=== PATIENT | male | born 1945 | race Caucasian/White ===

== ENCOUNTER → 2017-05-20 | Day surgery (SDC) | payer MEDICARE ==
[~2017-05-20] MED LIST: AMBIEN10 MG PO; BELLADONNA/OPIUM 60 MG SUPP PR ONE; CEFTRIAXONE SOD 1 GM VIAL ONE; DESFLURANE 240 ML BTL INH ONE; DEXAMETHASONE SOD PHOS INJ 4 MG/ML VIAL ONE; FENTANYL CITRATE/PF 100MCG/2 ML INJ ONE; GENTAMICIN 80MG/NS 100 ML 200 ML IV ONE; IOPAMIDOL 610MG/1ML 300 MG/ML VIAL IV ONE; LIDOCAINE HCL 2% LOCAL INJ 5 ML SDV VIAL INJ ONE; LISINOPRIL10 MG PO; MIDAZOLAM HCL 2 MG/2 ML VIAL ONE; ONDANSETRON HCL INJ 2 MG/ML VIAL ONE; PRILOSEC OTC20 MG PO; PROPOFOL IV EMULSION 10 MG/ML 20 ML VIAL ONE
--- NOTE | 2017-05-20 05:36 | Diagnostic Imaging Report ---
EXAMINATION: CHEST SINGLE (PORTABLE) INDICATION: Presurgical assessment. COMPARISON: None FINDINGS: TUBES and LINES: None. LUNGS: Lungs are well inflated. Lungs are clear. There is no evidence of pneumonia or pulmonary edema. PLEURA: No pleural effusion or pneumothorax. HEART AND MEDIASTINUM: The cardiomediastinal silhouette is unremarkable. BONES AND SOFT TISSUES: No acute osseous lesion. Soft tissues are unremarkable. UPPER ABDOMEN: No free air under the diaphragm. IMPRESSION: No acute thoracic abnormality. Signed by: Dr. Curtis Marte M.D. on 05/20/2017 5:33 AM
[2017-05-20 05:56] LABS: BASOPHILS % 0.4 % (0.0-1.0); EOSINOPHILS # (AUTO) 0.3 (0.0-0.4); EOSINOPHILS % 5.6 % (0.0-6.0); HEMATOCRIT 36.7 % (38.2-49.6); HEMOGLOBIN 11.9 g/dL (14.0-18.0); LYMPHOCYTES # (AUTO) 1.1 (1.0-3.2); LYMPHOCYTES % 23.5 % (18.0-39.1); MEAN CORPUSCULAR HEMOGLOBIN 28.8 pg (28-32); MEAN CORPUSCULAR HGB CONC 32.4 g/dL (31-35); MEAN CORPUSCULAR VOLUME 88.9 fL (81-99); MONOCYTES # (AUTO) 0.5 (0.2-0.8); MONOCYTES % 9.3 % (4.4-11.3); NEUTROPHILS % 60.8 % (38.7-80.0); PLATELET COUNT 260 x10e3/uL (140-360); RED BLOOD COUNT 4.13 x10e6/uL (4.3-5.7); RED CELL DISTRIBUTION WIDTH 13.3 % (11.7-14.4)
--- OUTSIDE RECORDS SUMMARY | 2017-05-20 05:57 | XMS REPORT | Clinical Summary ---
Author Author [facility] Address Unknown Phone Unavailable Care Team Providers Care Power Distributor Name Role Phone Ashley Bowens PCP Allergies No Known Allergies Current Medications Prescription Sig. Disp. Refills Start End Date Status Date allopurinol (ZYLOPRIM) TK 1 T PO QD UTD 0 12/20/19 Active 100 MG tablet 17 buprenorphine (BUTRANS) 5 NEISHA 1 PA EXT TO THE SKIN 0 01/16/20 Active mcg/hour patch weekly Q 7 DAYS 17 cyclobenzaprine TK 1 T PO D PRF MSP 0 02/12/20 Active (FLEXERIL) 10 mg tablet 17 hydroCHLOROthiazide TK 1 T PO QD IN THE 3 02/23/20 Active (HYDRODIURIL) 12.5 MG MORNING 17 tablet HYDROcodone-acetaminophen TK 1 T PO BID PRF PAIN 0 02/12/20 Active (NORCO) 5-325 mg per 17 tablet lisinopril TK 1 T PO QD 3 02/23/20 Active (PRINIVIL,ZESTRIL) 20 mg 17 tablet zolpidem (AMBIEN) 10 mg TK 1 T PO QD HS 2 02/25/20 Active tablet 17 naproxen (EC NAPROSYN) Take 500 mg by mouth 2 Active 500 MG EC tablet (two) times a day with meals. folic acid (FOLVITE) 1 MG Take 1 tablet (1 mg 90 tablet 1 04/21/19 07/21/19 tablet total) by mouth daily for 17 17 90 days. Active Problems No known active problems Encounters Date Type Specialty Care Team Description 05/11/2017 Hospital Radiology Oneida Perez MD Spinal stenosis of lumbar Encounter region with neurogenic claudication 03/02/2017 Office Visit Neurology Oneida Perez MD Idiopathic peripheral neuropathy (Primary Dx);Spinal stenosis of lumbar region with neurogenic claudication;Other specified disorders of carbohydrate metabolism (CODE) 03/02/2017 Procedure Pass Radiology 10/09/2016 Refill Rheumatology Abdelrahman Mallory MD after 05/19/2016 Social History Tobacco Use Types Packs/Day Years Used Date Former Smoker Cigarettes Quit: 03/02/1998 Smokeless Tobacco: Never Used Alcohol Use Drinks/Week oz/Week Comments No Sex Assigned at Date Recorded Not on file Last Filed Vital Signs Vital Sign Reading Time Taken Blood Pressure 135/78 03/02/2017 1:08 PM [facility] Pulse 90 03/02/2017 1:08 PM [facility] Temperature - - Respiratory Rate - - Oxygen Saturation - - Inhaled Oxygen - - Concentration Weight 80.7 kg (178 lb) 05/11/2017 7:00 AM [facility] Height 182.9 cm (6') 03/02/2017 1:08 PM [facility] Body Mass Index 24.14 05/11/2017 7:00 AM [facility] Plan of Treatment Date Type Specialty Care Team Description 05/27/2017 Procedure visit Neurology Oneida Perez MD [address] [address] Health Maintenance Due Date Last Done Comments COLONOSCOPY 11/28/1995 ZOSTER VACCINE 2005 PNEUMOCOCCAL 2010 POLYSACCHARIDE VACCINE AGE 65 AND OVER PNEUMOCOCCAL-13 2010 INFLUENZA VACCINE 11/11/2016 Results * SSA/SSB antibody (05/12/2017 9:35 AM) Component Value Ref Range Sjogren's SS-A antibody <0.2 0.0 - 0.9 AI Sjogren's SS-B antibody <0.2 0.0 - 0.9 AI Specimen Performing Laboratory Blood [facility] Narrative Performed at:[address] [place], [place] [id number] Supervisor [employer]: Srinivasan Rico MD, Phone:[phone] * Immunofixation, serum (05/12/2017 9:35 AM) Component Value Ref Range Immunofixation, serum CommentComment: An apparent normal immunofixation pattern. IgG 949 700 - 1600 mg/dL IgA 219 61 - 437 mg/dL IgM 198 (H) 15 - 143 mg/dL Specimen Performing Laboratory Blood [facility] Narrative Performed at:[address] [place], [place] [id number] Supervisor [employer]: FARHAN Coffman MD, Phone:[phone] Performed at:02 - [id number] Supervisor [employer]: Srinivasan Rico MD, Phone:[phone] * MRI Lumbar Spine W Wo Contrast (05/11/2017 8:41 AM) Specimen Performing Laboratory [facility] [address] [address] Narrative EXAMINATION:MRI LUMBAR SPINE W WO CONTRAST CLINICAL HISTORY:M48.062 Spinal stenosislumbar region with neurogenic claudication, lumbar and leg pain COMPARISON:None. FINDINGS: There is a spondylolisthesis of approximately 6 mm of L4 on L5 is diffuse grade 1. There is a minimal retrolisthesis of approximately 2 to 3 mm of L2 on L3. Degenerative disc disease throughout the lumbar and lower thoracic region is present. The disc spaces at the L4-5 and L5-S1 levels are obliterated. The conus medullaris terminates at approximately L1. A right renal cyst is noted which is incompletely visualized. L1-2: The neural foramina are patent bilaterally. The disc margin is smooth. The central canal is preserved lateral recesses are unremarkable. Facets are moderately hypertrophic. L2-3: The foramina are patent but narrowed bilaterally. There is a mild diffuse disc protrusion/osteophytic ridge. The central canal is maintained. The lateral recesses are preserved. Facets are grossly hypertrophic. Some compression of the thecal sac laterally is present although no maulik stenosis is noted. L3-4: The foramina are mildly narrowed bilaterally by diffuse disc protrusion. The central canal is preserved lateral recesses are borderline related to gross dorsal facet and ligamentous hypertrophy. L4-5: The neural foramina are narrowed bilaterally. There appear to be postop changes dorsally at this level from a previous laminotomy to the right. There is a mild central canal stenosis. The lateral recesses are narrowed bilaterally greater to the right. There is gross facet hypertrophy dorsally. This compresses the thecal sac laterally. There is also pronounced dorsal facet hypertrophy greater to the left compressing the thecal sac dorsolaterally to the left. L5-S1: The foramina are narrowed bilaterally. There is a diffuse disc protrusion. The central canal and lateral recesses are preserved. Facets are grossly hypertrophic. Probable laminectomy defect at the L5-S1 level. IMPRESSION: 1. Diffuse disc protrusion at the L2-3 level with borderline foraminal narrowing on both sides and gross dorsal facet and ligamentous hypertrophy. 2. Foraminal narrowing bilaterally at the L3-4 level related to disc protrusion/ osteophytic ridge and facet hypertrophy. 3. Postop changes at the L4-5 level with hypertrophic changes involving the facet joints greater to the left and a central canal and severe bilateral lateral recess stenosis at this level related present slightly to the hypertrophic changes and a spondylolisthesis of L4 on L5. 4. Borderline central canal and lateral recess narrowing at the L5-S1 level related to gross dorsal facet and ligamentous hypertrophy. IMPRESSION: [id number] Procedure Note Hm Interface, Radiology Results Incoming - 05/11/2017 9:21 AM [facility] EXAMINATION: MRI LUMBAR SPINE W WO CONTRAST CLINICAL HISTORY: M48.062 Spinal stenosis lumbar region with neurogenic claudication, lumbar and leg pain COMPARISON: None. FINDINGS: There is a spondylolisthesis of approximately 6 mm of L4 on L5 is diffuse grade 1. There is a minimal retrolisthesis of approximately 2 to 3 mm of L2 on L3. Degenerative disc disease throughout the lumbar and lower thoracic region is present. The disc spaces at the L4-5 and L5-S1 levels are obliterated. The conus medullaris terminates at approximately L1. A right renal cyst is noted which is incompletely visualized. L1-2: The neural foramina are patent bilaterally. The disc margin is smooth. The central canal is preserved lateral recesses are unremarkable. Facets are moderately hypertrophic. L2-3: The foramina are patent but narrowed bilaterally. There is a mild diffuse disc protrusion/osteophytic ridge. The central canal is maintained. The lateral recesses are preserved. Facets are grossly hypertrophic. Some compression of the thecal sac laterally is present although no maulik stenosis is noted. L3-4: The foramina are mildly narrowed bilaterally by diffuse disc protrusion. The central canal is preserved lateral recesses are borderline related to gross dorsal facet and ligamentous hypertrophy. L4-5: The neural foramina are narrowed bilaterally. There appear to be postop changes dorsally at this level from a previous laminotomy to the right. There is a mild central canal stenosis. The lateral recesses are narrowed bilaterally greater to the right. There is gross facet hypertrophy dorsally. This compresses the thecal sac laterally. There is also pronounced dorsal facet hypertrophy greater to the left compressing the thecal sac dorsolaterally to the left. L5-S1: The foramina are narrowed bilaterally. There is a diffuse disc protrusion. The central canal and lateral recesses are preserved. Facets are grossly hypertrophic. Probable laminectomy defect at the L5-S1 level. IMPRESSION: 1. Diffuse disc protrusion at the L2-3 level with borderline foraminal narrowing on both sides and gross dorsal facet and ligamentous hypertrophy. 2. Foraminal narrowing bilaterally at the L3-4 level related to disc protrusion /osteophytic ridge and facet hypertrophy. 3. Postop changes at the L4-5 level with hypertrophic changes involving the facet joints greater to the left and a central canal and severe bilateral lateral recess stenosis at this level related present slightly to the hypertrophic changes and a spondylolisthesis of L4 on L5. 4. Borderline central canal and lateral recess narrowing at the L5-S1 level related to gross dorsal facet and ligamentous hypertrophy. IMPRESSION: [id number] * POC creatinine (05/11/2017 7:43 AM) Component Value Ref Range POC creatinine 1.5 (H) 0.7 - 1.2 mg/dl Specimen Performing Laboratory Blood [facility] DEPARTMENT OF PATHOLOGY AND GENOMIC MEDICINE [address] [place] [address] after 05/19/2016 Insurance Payer Benefit Subscriber ID Type Phone Address Plan / Group [employer] MEDICARE [employer] [id number] [facility] [employer]
--- OUTSIDE RECORDS SUMMARY | 2017-05-20 05:57 | XMS REPORT ---
Author Author [facility] Address Unknown Phone Unavailable Care Team Providers Care Stock Receiver Name Role Phone MICKEY BATES Unavailable Unavailable Problems This patient has no known problems. Allergies, Adverse Reactions, Alerts This patient has no known allergies or adverse reactions. Medications This patient has no known medications. Results Test Description Test Time Test Comments Text Results Atomic Results Result Comments CHEST SINGLE (PORTABLE) [place] [address] Patient Name: EKATERINA BRO JR MR #: [id number] : 1945 Age/Sex: 71/M Req #: [id number] Adm Physician: Ordered by: WIL SALDIVAR MD Report #: [id number] Location: OR Room/Bed: Procedure: [id number] DX/CHEST SINGLE (PORTABLE) Exam Date: Exam Time: REPORT STATUS: Signed EXAMINATION: CHEST SINGLE ( PORTABLE) INDICATION: Presurgical assessment. COMPARISON: None FINDINGS: TUBES and LINES: None. LUNGS: Lungs are well inflated. Lungs are clear. There is no evidence of pneumonia or pulmonary edema. PLEURA: No pleural effusion or pneumothorax. HEART AND MEDIASTINUM: The cardiomediastinal silhouette is unremarkable. BONES AND SOFT TISSUES: No acute osseous lesion. Soft tissues are unremarkable. UPPER ABDOMEN: No free air under the diaphragm. IMPRESSION: No acute thoracic abnormality. Signed by: Dr. Curtis Marte M.D. on 05/20/2017 5:33 AM Dictated By: CURTIS GAMING MD 2 Transcribed By: FIDELIA on 05/20/17532 COPY TO: WIL SALDIVAR MD
--- NOTE | 2017-06-25 05:41 | Operative Report ---
DATE OF PROCEDURE: May 20, 2017 PREOPERATIVE DIAGNOSES: 1. History of urolithiasis. 2. Obstructive benign prostatic hypertrophy. POSTOPERATIVE DIAGNOSES: 1. History of urolithiasis. 2. Obstructive benign prostatic hypertrophy. OPERATIONS PERFORMED: 1. Cystourethroscopy with bilateral ureteral catheterization and retrograde ureteropyelography (separate procedure performed for the urolithiasis history). 2. Interpretation of retrograde ureteropyelography. 3. Cystourethroscopy with implantation of 4 UroLift implants (separate procedure performed for the obstructive benign prostatic hypertrophy). ANESTHESIA: General. COMPLICATIONS: None. CLINICAL SUMMARY: Calixto Bustamante Jr. is a 71-year-old man with the above preoperative diagnoses. He has failed Flomax, and has had side effects to Uroxatral. He has thus failed 2 medications. The patient previously passed a stone. The patient's maximum flow rate is only 10 mL and his AUA symptom score is above 12. Patient understands the risks of bleeding, infection, injury to adjacent structures, potential need for a transurethral resection of the prostate or similar procedure. He understood all these risks and elected to proceed. OPERATIVE PROCEDURE IN DETAIL: Informed consent was verified. Calixto Bustamante Jr. was properly identified, taken to the operating room and placed on the cystoscopy table in supine position. Anesthesia was uneventfully begun. The patient was then carefully and gently repositioned in dorsal lithotomy position with all pressure points well padded. His genitalia were prepared and draped in usual sterile fashion. The 22.5-Armenian cystoscope sheath with the visual obturator in place was atraumatically inserted in patient's urethra. It was guided down the unremarkable distal urethra through some wide caliber probably insignificant stricturing through the normal sphincteric region into the patient's prostate bed, which exhibited visually obstructing BPH. Panendoscopy of the urinary bladder revealed a small diverticulum that was near the right ureteral orifice. There were some trabeculations noted throughout the bladder. No suspicious mucosal lesions were identified. There were no stones and no tumors. A ureteral catheter was utilized to cannulate each ureter, and retrograde ureteropyelograms were performed. Interpretation of retrograde ureteropyelography: Contrast was instilled in retrograde fashion bilaterally. There were no tumors, no stones, and no diverticula. Unobstructed drainage was observed bilaterally fluoroscopically. We removed the cystoscope sheath and then reinserted under direct vision a 20-Armenian cystoscope sheath. We then deployed 4 UroLift implants. They were deployed anterolaterally, 1 on either side 1-1/2 cm distal to the bladder neck and at the level of the verumontanum for a total of 4 implants. This resulted in a continuous open anterior channel. The cystoscope was withdrawn. A belladonna and opium suppository was placed revealing a 40 gram prostate, smooth, nonfluctuant, and without any nodules. The patient was then uneventfully reversed from anesthesia and taken to the recovery room in stable condition. There were no complications to the procedure. He tolerated the procedure well. Plans will be to follow the patient up in the office, at which point in time uroflowmetry and bladder ultrasonography will be performed. Job#: [id number] cc:Hayes Gunter M.D.
== END | disposition home or self-care (01) ==
LOC: OR 05:55
PROVIDERS: ATTEND Urology
DX: N40.1 Benign prostatic hyperplasia with lower urinary tract symptoms (principal); N13.8 Other obstructive and reflux uropathy; R39.14 Feeling of incomplete bladder emptying; R35.1 Nocturia; N32.3 Diverticulum of bladder; N28.1 Cyst of kidney, acquired; R39.12 Poor urinary stream; N52.9 Male erectile dysfunction, unspecified; I10 Essential (primary) hypertension; M19.90 Unspecified osteoarthritis, unspecified site; K21.9 Gastro-esophageal reflux disease without esophagitis; Z87.442 Personal history of urinary calculi
CPT/HCPCS: 52005; C9740; 36415; 71045; 74420; 85025; 93005; J0696; J1100; J1580; J2001; J2250; J2405

== ENCOUNTER → 2017-09-08 | Outpatient (CLI) | payer MEDICARE ==
[~2017-09-08] MED LIST changes: -BELLADONNA/OPIUM 60 MG SUPP PR ONE; -CEFTRIAXONE SOD 1 GM VIAL ONE; -DESFLURANE 240 ML BTL INH ONE; -DEXAMETHASONE SOD PHOS INJ 4 MG/ML VIAL ONE; -FENTANYL CITRATE/PF 100MCG/2 ML INJ ONE; -GENTAMICIN 80MG/NS 100 ML 200 ML IV ONE; -IOPAMIDOL 610MG/1ML 300 MG/ML VIAL IV ONE; -LIDOCAINE HCL 2% LOCAL INJ 5 ML SDV VIAL INJ ONE; -MIDAZOLAM HCL 2 MG/2 ML VIAL ONE; -ONDANSETRON HCL INJ 2 MG/ML VIAL ONE; -PROPOFOL IV EMULSION 10 MG/ML 20 ML VIAL ONE
--- NOTE | 2017-09-08 17:49 | Diagnostic Imaging Report ---
PROCEDURE: CT ABDOMEN AND PELVIS WITHOUT CONTRAST TECHNIQUE: The abdomen and pelvis were scanned utilizing a multidetector helical scanner from the diaphragm to the lesser trochanter after the oral administration of water. No IV contrast was administered per protocol. Coronal and sagittal multiplanar reformations were obtained. COMPARISON: Patients [facility], DX, RETROGRADE PYELOGRAM, 05/20/2017, 6:53. INDICATIONS: renal stone follow up FINDINGS: ABSENCE OF INTRAVENOUS CONTRAST DECREASES SENSITIVITY FOR DETECTION OF FOCAL LESIONS AND VASCULAR PATHOLOGY. LOWER THORAX: 4 mm calcified granuloma in the anterior right lower lobe (series 3, image 6). Metallic clips adjacent to the GE junction. Lung bases are otherwise clear. HEPATOBILIARY: No focal hepatic lesions. No biliary ductal dilatation. Gallbladder is unremarkable. SPLEEN: No splenomegaly. PANCREAS: Focal convexity in the anterior aspect of the pancreatic head to the right of the gastroduodenal artery (series 3, image 48 and coronal image 40-42), between the pancreatic head and second portion of the duodenum. This area does not have the same attenuation as the rest of the pancreatic parenchyma. No ductal dilation ADRENALS: 1.1 x 1.0 cm hypodense nodule in the left adrenal gland (series 3, image 25) with a measured density of -10 HU, consistent with a benign lipid rich adrenal adenoma..A similar 1.2 x 0.9 cm lesion with measured density of 6 HU is noted in the right adrenal gland (series 3, image 28). KIDNEYS/URETERS: Right: 4 mm nonobstructing calculus in the mid to inferior aspect (series 3, image 63). No other renal or ureteral calculi. No hydronephrosis, hydroureter, or evidence of obstruction. 4.1 x 5.5 x 5.3 cm mostly exophytic fluid density simple cyst in the superior pole (series 3, image 36). 2.0 x 2.3 x 2.3 cm partly exophytic fluid density simple cyst in the interpolar region (series 3, image 59). Adjacent 0.8 x 0.7 cm mostly exophytic fluid density simple cyst (series 3, image 66). No other contour abnormalities. Left: No renal or ureteral calculi, hydronephrosis, or obstruction. 2.6 x 2.3 x 2.2 cm fluid density simple cyst in the interpolar region (series 3, image 40). No other contour abnormalities.. PELVIC ORGANS/BLADDER: Mild circumferential bladder wall thickening, which are partly due to under distention. Linear metallic densities in the prostate may represent brachytherapy seeds PERITONEUM / RETROPERITONEUM: No free air or fluid. LYMPH NODES: No lymphadenopathy. VESSELS: Atherosclerotic calcification of the abdominal aorta and proximal iliac vessels. GI TRACT: No bowel dilation or evidence of obstruction. Distal descending and sigmoid colon diverticulosis, without diverticulitis. Mild wall thickening in the sigmoid colon, which may be due to muscular hypertrophy. Postoperative changes in the distal stomach antrum/pylorus BONES AND SOFT TISSUES: No aggressive lytic lesion. Degenerative disc changes, predominantly at L4-L5, and L5-S1. Grade 1 anterolisthesis of L4 on L5 secondary to bilateral pars interarticularis defects. Grade 1 anterolisthesis of S1 on L5. Grade 1 anterolisthesis of L3 on L2. Facet hypertrophy. L3-L4, L4-L5, and L5-S1. Mild degenerative changes in the right sacroiliac joint. 0.9 cm focal sclerotic lesion in the proximal left femur has a nonaggressive appearance and likely represents a bone island (series 3, image 149). Soft tissues are grossly unremarkable. IMPRESSION: 1. 4 mm nonobstructing calculus in the mid to inferior right kidney. No other renal or any ureteral calculi, hydronephrosis, or obstruction. 2. Bilateral simple renal cysts, as described. 3. Indeterminate focal convexity between the second portion of the duodenum and the pancreatic head, which does not measure similar attenuation to pancreatic tissue. Difficult to assess due to lack of intravenous contrast. A duodenal diverticulum is a diagnostic possibility. A focal pancreatic mass is thought to be less likely given the lack of ductal dilation. Recommend CT abdomen with pancreas mass protocol for further evaluation. 4. Bilateral small benign, lipid rich adrenal adenomas. No further diagnostic or followup imaging is indicated. 5. Distal descending and sigmoid colon diverticulosis, without diverticulitis. Mild wall thickening in the sigmoid colon, which is felt to represent muscular hypertrophy. Direct visualization with endoscopy is recommended, if not previously performed. Michael Ch M.D. Dictated by: Michael Ch M.D. on 09/08/2017 at 17:51 Electronically approved by: Michael Ch M.D. on 09/08/2017 at 17:51
== END ==
LOC: CT 12:59
PROVIDERS: ATTEND Urology
DX: N20.0 Calculus of kidney (principal)
CPT/HCPCS: 74176

== ENCOUNTER → 2019-06-20 | Outpatient (CLI) | payer MEDICARE ==
--- NOTE | 2019-06-20 10:44 | Diagnostic Imaging Report ---
EXAM: Abdomen Radiograph 1 View(s) INDICATION: ^[id number] ^[id number] ^CALCULUS OF KIDNEY COMPARISON: None FINDINGS: No abnormal abdominal soft tissue calcification. Right upper quadrant surgical clips. Nonspecific bowel gas pattern. Large amount of formed stool within the colon. No free intraperitoneal air. Advanced L5-S1 degenerative change. No acute osseous abnormality. IMPRESSION: No radiographically visible renal calculus is identified. Signed by: Emigdio Ralph MD on 06/20/2019 10:41 AM
--- NOTE | 2019-06-20 11:18 | Diagnostic Imaging Report ---
EXAM: Renal Ultrasound INDICATION: ^[id number] ^[id number] ^CYST OF KIDNEY COMPARISON: CT abdomen and pelvis 09/08/2017, KUB 06/20/2019 TECHNIQUE: Transverse and longitudinal images of the kidneys and bladder were obtained. FINDINGS: Right Kidney: Length: 9.7 cm Appearance: Normal echogenicity. Collecting system: No hydronephrosis Stones: None Cyst/Mass: Right upper pole simple cyst measures 4.7 x 4.3 x 4.7 cm. Right midpole simple cyst measures 2.5 x 2.6 x 2.7 cm. Left Kidney: Length: 11.7 cm Appearance: Normal echogenicity. Collecting system: No hydronephrosis Stones: None Cyst/Mass: Left midpole simple cyst measures 2.5 x 2.8 x 2.6 cm. Bladder: No mass or calculi. Bilateral ureteral jets visualized. Prevoid volume estimate of 146cc. Mild prostatomegaly (4.4 x 4.1 x 4.4 cm) with volume estimate of 41.7 cc. IMPRESSION: No renal calculi or hydronephrosis. Bilateral simple renal cysts as above. Mild prostatomegaly. Signed by: Celestine Machuca MD on 06/20/2019 11:15 AM
== END ==
LOC: US 09:56
PROVIDERS: ATTEND Urology
DX: N20.0 Calculus of kidney (principal)
CPT/HCPCS: 74018; 76770

== ENCOUNTER → 2021-08-13 | Day surgery (SDC) | payer MEDICARE ==
[~2021-08-13] MED LIST changes: +FENTANYL CITRATE/PF 100MCG/2 ML INJ ONE; +MIDAZOLAM HCL 2 MG/2 ML VIAL ONE; +NEURONTIN100 MG PO; +OR PHACO EYE KIT ONE
[2021-08-13] MEDS: PREOP PHACO EYE KIT ONE (10:14)
[2021-08-13 13:10] VITALS: BP 131/71
== END | disposition home or self-care (01) ==
LOC: OR 10:05
PROVIDERS: ATTEND Ophthalmology
DX: H25.12 Age-related nuclear cataract, left eye (principal); N18.9 Chronic kidney disease, unspecified; M79.7 Fibromyalgia; K21.9 Gastro-esophageal reflux disease without esophagitis; M10.9 Gout, unspecified; I69.311 Memory deficit following cerebral infarction; G47.00 Insomnia, unspecified; K27.9 Peptic ulcer, site unspecified, unspecified as acute or chronic, without hemorrhage or perforation; Z11.52 Encounter for screening for COVID-19; Z79.899 Other long term (current) drug therapy
CPT/HCPCS: J2250; J3010; U0002; V2788

== ENCOUNTER → 2021-08-27 | Day surgery (SDC) | payer MEDICARE ==
[~2021-08-27] MED LIST changes: +PREOP PHACO EYE KIT ONE
[2021-08-27 11:20] VITALS: BP 126/82
== END | disposition home or self-care (01) ==
LOC: OR 08:10
PROVIDERS: ATTEND Ophthalmology
DX: H25.11 Age-related nuclear cataract, right eye (principal); I12.9 Hypertensive chronic kidney disease with stage 1 through stage 4 chronic kidney disease, or unspecified chronic kidney disease; N18.9 Chronic kidney disease, unspecified; K21.9 Gastro-esophageal reflux disease without esophagitis; I69.311 Memory deficit following cerebral infarction; G47.00 Insomnia, unspecified; M79.7 Fibromyalgia; D69.2 Other nonthrombocytopenic purpura; M10.9 Gout, unspecified; K28.9 Gastrojejunal ulcer, unspecified as acute or chronic, without hemorrhage or perforation; N20.0 Calculus of kidney; Z88.1 Allergy status to other antibiotic agents; Z01.812 Encounter for preprocedural laboratory examination; Z20.822 Contact with and (suspected) exposure to COVID-19; Z79.899 Other long term (current) drug therapy; Z87.891 Personal history of nicotine dependence
CPT/HCPCS: 66984; U0002; J2250; J3010

== ENCOUNTER 2023-11-26 13:32 | Observation (INO) | payer MEDICARE ==
[~2023-11-26] VITALS: Ht 185.4 cm; Wt 81.6 kg
[~2023-11-26 13:32] MED LIST changes: -FENTANYL CITRATE/PF 100MCG/2 ML INJ ONE; -MIDAZOLAM HCL 2 MG/2 ML VIAL ONE; -OR PHACO EYE KIT ONE; -PREOP PHACO EYE KIT ONE
[2023-11-26 13:45] VITALS: TEMP 97.8
[2023-11-26 14:06] LABS: BASOPHILS % 0.3 % (0.0-1.0); EOSINOPHILS # (AUTO) 0.2 (0.0-0.4); EOSINOPHILS % 3.6 % (0.0-6.0); HEMATOCRIT 38.1 % (38.2-49.6); HEMOGLOBIN 12.1 g/dL (14.0-18.0); MEAN CORPUSCULAR HGB CONC 31.8 g/dL (31-35); MEAN CORPUSCULAR VOLUME 94.3 fL (81-99); MONOCYTES # (AUTO) 0.6 (0.2-0.8); NEUTROPHILS # (AUTO) 4.4 (2.1-6.9); NEUTROPHILS % 70.8 % (38.7-80.0); PLATELET COUNT 251 x10e3/uL (140-360); RED BLOOD COUNT 4.04 x10e6/uL (4.3-5.7); RED CELL DISTRIBUTION WIDTH 13.4 % (11.7-14.4); WHITE BLOOD COUNT 6.14 x10e3/uL (4.8-10.8)
[2023-11-26 14:15] LABS: INR 0.99; PROTHROMBIN TIME 13.6 seconds (11.9-14.5)
[2023-11-26 14:16] LABS: PARTIAL THROMBOPLASTIN TIME 30.3 seconds (23.8-35.5)
[2023-11-26 14:21] LABS: ALBUMIN 3.7 g/dL (3.5-5.0); ALBUMIN/GLOBULIN RATIO 1.2 (0.8-2.0); ANION GAP 13.2 mmol/L (8-16); BILIRUBIN,TOTAL 0.4 mg/dL (0.2-1.2); CALCIUM 8.5 mg/dL (8.4-10.2); CREATININE, SERUM 1.79 mg/dL (0.72-1.25); TOTAL PROTEIN 6.9 g/dL (6.5-8.1)
[2023-11-26 14:22] LABS: POTASSIUM 5.2 mmol/L (3.5-5.1)
[2023-11-26 15:30] VITALS: PULSE 73; RESP 16
[2023-11-26] MEDS ORDERED: ONDANSETRON HCL INJ 2MG/ML 2ML 2 MG/ML VIAL IV PRN (17:00)
[2023-11-26 17:39] VITALS: BP 180/86; PULSE 63; RESP 18; TEMP 97.6; O2SAT 100
[2023-11-26] MEDS: DEXTROSE 50% SYRINGE 50 ML IV STA (18:12)
[2023-11-26] MEDS: INSULIN REGULAR, HUMAN 100 UNIT/1 ML IV ONE (18:17)
[2023-11-26] MEDS: SODIUM CHLORIDE 0.9% 1000ML 1,000 ML IV SCH (18:17)
[2023-11-26] MEDS: SODIUM BICARBONATE 8.4% INJ 50 ML SYR IV ONE (18:18)
[2023-11-26 19:50] VITALS: BP 175/87; PULSE 68; RESP 22; TEMP 97.8; O2SAT 100
[2023-11-26] MEDS: CALCIUM GLUC 1 G/50 ML NACL 100 ML IV ONE (20:06)
[2023-11-26] MEDS: SODIUM CHLORIDE 0.9% 1000ML 1,000 ML IV ONE (20:07)
[2023-11-26 21:58] LABS: CLARITY,URINE CLEAR (CLEAR); COLOR,URINE YELLOW (YELLOW); LEUKOCYTE ESTERASE ,URINE NEGATIVE (NEGATIVE); NITRITE,URINE NEGATIVE (NEGATIVE); PH,URINE 7.5 (5 - 7)
[2023-11-26 21:59] LABS: BILIRUBIN,URINE NEGATIVE (NEGATIVE); GLUCOSE, URINE NEGATIVE (NEGATIVE); KETONES,URINE NEGATIVE (NEGATIVE); PROTEIN,URINE DIPSTICK NEGATIVE (NEGATIVE); URINE UROBILINOGEN 0.2 mg/dL (0.2 - 1)
[2023-11-26 22:04] LABS: BACTERIA,URINE RARE /HPF; WBC,URINE (MAN) 0-5 /HPF (0-5)
[2023-11-26 22:45] VITALS: BP 175/87; PULSE 68; RESP 22; TEMP 97.8; O2SAT 100
[2023-11-26 23:04] VITALS: BP 175/87; PULSE 68; RESP 22; TEMP 97.8; O2SAT 100
[2023-11-27 00:10] VITALS: BP 149/84; PULSE 68; RESP 18; TEMP 97.8; O2SAT 98
[2023-11-27 04:00] VITALS: BP 155/74; PULSE 64; RESP 20; TEMP 97.6; O2SAT 100
[2023-11-27] MEDS: HYDROCODONE/APAP 5MG-325MG TAB PO PRN (04:38)
[2023-11-27 05:45] LABS: BASOPHILS % 0.3 % (0.0-1.0); EOSINOPHILS # (AUTO) 0.2 (0.0-0.4); EOSINOPHILS % 3.7 % (0.0-6.0); HEMATOCRIT 36.4 % (38.2-49.6); HEMOGLOBIN 11.5 g/dL (14.0-18.0); LYMPHOCYTES % 17.3 % (18.0-39.1); MEAN CORPUSCULAR HGB CONC 31.6 g/dL (31-35); MONOCYTES # (AUTO) 0.5 (0.2-0.8); MONOCYTES % 7.9 % (4.4-11.3); NEUTROPHILS # (AUTO) 4.2 (2.1-6.9); NEUTROPHILS % 70.6 % (38.7-80.0); PLATELET COUNT 230 x10e3/uL (140-360); RED BLOOD COUNT 3.83 x10e6/uL (4.3-5.7); RED CELL DISTRIBUTION WIDTH 13.2 % (11.7-14.4); WHITE BLOOD COUNT 5.96 x10e3/uL (4.8-10.8)
[2023-11-27 06:57] LABS: ALBUMIN 3.2 g/dL (3.5-5.0); ALBUMIN/GLOBULIN RATIO 1.2 (0.8-2.0); BILIRUBIN,TOTAL 0.6 mg/dL (0.2-1.2); CALCIUM 8.8 mg/dL (8.4-10.2); CREATININE, SERUM 1.49 mg/dL (0.72-1.25); TOTAL PROTEIN 5.9 g/dL (6.5-8.1)
[2023-11-27 08:00] VITALS: BP 154/82; PULSE 71; RESP 18; TEMP 97.9; O2SAT 100
[2023-11-27 09:10] VITALS: BP 154/82; PULSE 71; RESP 18; TEMP 97.9; O2SAT 100
[2023-11-27 11:56] VITALS: BP 173/89; PULSE 63; RESP 18; TEMP 98; O2SAT 100
[2023-11-27] MEDS ORDERED: SIMETHICONE 80 MG CHEW PO PRN (12:15)
[2023-11-27] MEDS ORDERED: METOPROLOL TARTRATE INJ 1 MG/ML VIAL IV PRN (12:15)
[2023-11-27] MEDS ORDERED: ACETAMINOPHEN 325 MG TAB PO PRN (12:15)
[2023-11-27] MEDS ORDERED: DOCUSATE SODIUM 100 MG CAP PO PRN (12:15)
[2023-11-27] MEDS ORDERED: GABAPENTIN 100 MG CAP PO SCH (17:00)
[2023-11-27] MEDS ORDERED: MELATONIN 3 MG TAB PO PRN (21:00)
[2023-11-27] MEDS ORDERED: ZOLPIDEM TARTRATE 10 MG TAB PO SCH (21:00)
== END 2023-11-27 15:17 | disposition left against medical advice (07) ==
LOC: ER 13:37 → ERHOLD 17:00 → MED/SURG3 17:28
PROVIDERS: ADMIT Internal Medicine; ATTEND Internal Medicine
DX: E87.5 Hyperkalemia (principal); G93.41 Metabolic encephalopathy; N17.9 Acute kidney failure, unspecified; R42 Dizziness and giddiness; I10 Essential (primary) hypertension; G47.00 Insomnia, unspecified; E87.20 Acidosis, unspecified
CPT/HCPCS: 36415 ×2; 70450; 80053 ×2; 81001; 82948; 85025 ×2; 85610; 85730; 93005; 99284; G0378 ×2; J7030 ×2; J7799; U0002

== ENCOUNTER 2023-11-28 11:29 | Inpatient (IN) | payer MEDICARE ==
[~2023-11-28] VITALS: Ht 185.4 cm; Wt 81.6 kg
[2023-11-28] VITALS: BP 164/99; PULSE 62; RESP 20; TEMP 98.1; O2SAT 100
[2023-11-28 11:40] VITALS: TEMP 97.6
[2023-11-28 12:43] LABS: BASOPHILS % 0.2 % (0.0-1.0); EOSINOPHILS # (AUTO) 0.1 (0.0-0.4); EOSINOPHILS % 1.2 % (0.0-6.0); HEMATOCRIT 37.2 % (38.2-49.6); HEMOGLOBIN 11.6 g/dL (14.0-18.0); LYMPHOCYTES # (AUTO) 0.4 (1.0-3.2); LYMPHOCYTES % 7.4 % (18.0-39.1); MEAN CORPUSCULAR HEMOGLOBIN 29.4 pg (28-32); MEAN CORPUSCULAR HGB CONC 31.2 g/dL (31-35); MEAN CORPUSCULAR VOLUME 94.4 fL (81-99); MONOCYTES # (AUTO) 0.5 (0.2-0.8); MONOCYTES % 10.5 % (4.4-11.3); NEUTROPHILS # (AUTO) 4.1 (2.1-6.9); NEUTROPHILS % 80.5 % (38.7-80.0); PLATELET COUNT 199 x10e3/uL (140-360); RED BLOOD COUNT 3.94 x10e6/uL (4.3-5.7); RED CELL DISTRIBUTION WIDTH 13.2 % (11.7-14.4); WHITE BLOOD COUNT 5.14 x10e3/uL (4.8-10.8)
[2023-11-28 12:57] LABS: ALBUMIN 3.6 g/dL (3.5-5.0); ALBUMIN/GLOBULIN RATIO 1.2 (0.8-2.0); ANION GAP 12.5 mmol/L (8-16); BILIRUBIN,TOTAL 0.7 mg/dL (0.2-1.2); CALCIUM 8.8 mg/dL (8.4-10.2); CREATININE, SERUM 1.61 mg/dL (0.72-1.25); POTASSIUM 4.5 mmol/L (3.5-5.1); TOTAL PROTEIN 6.6 g/dL (6.5-8.1)
[2023-11-28] MEDS ORDERED: SODIUM CHLORIDE FLUSH 10 ML SYR INJ PRN (14:00)
[2023-11-28] MEDS ORDERED: ONDANSETRON HCL INJ 2MG/ML 2ML 2 MG/ML VIAL IV PRN (14:00)
[2023-11-28 14:22] VITALS: PULSE 68; RESP 15
[2023-11-28 14:52] LABS: BILIRUBIN,URINE NEGATIVE (NEGATIVE); CLARITY,URINE CLEAR (CLEAR); COLOR,URINE YELLOW (YELLOW); GLUCOSE, URINE NEGATIVE (NEGATIVE); KETONES,URINE NEGATIVE (NEGATIVE); LEUKOCYTE ESTERASE ,URINE NEGATIVE (NEGATIVE); NITRITE,URINE NEGATIVE (NEGATIVE); PH,URINE 7 (5 - 7); PROTEIN,URINE DIPSTICK NEGATIVE (NEGATIVE); URINE UROBILINOGEN 0.2 mg/dL (0.2 - 1)
[2023-11-28 14:58] LABS: EPITHELIAL CELLS,URINE RARE /LPF; WBC,URINE (MAN) 0-5 /HPF (0-5)
[2023-11-28 15:15] VITALS: BP 181/87; PULSE 64; RESP 16; TEMP 98.3; O2SAT 100
[2023-11-28 15:51] VITALS: BP 181/87; PULSE 64; RESP 16; TEMP 98.3; O2SAT 100
[2023-11-28 16:45] VITALS: BP 181/87; PULSE 64; RESP 16; TEMP 98.3; O2SAT 100
[2023-11-28] MEDS: ZOLPIDEM TARTRATE 10 MG TAB PO SCH (20:39)
[2023-11-29] VITALS (8 sets, daily range): BP systolic 147–176; BP diastolic 78–90; PULSE 58–78; RESP 18–20; TEMP 97.6–99.2; O2SAT 98–100
[2023-11-29] MEDS: ALPRAZOLAM 0.25 MG TAB PO SCH
[2023-11-29 05:26] LABS: BASOPHILS % 0.2 % (0.0-1.0); EOSINOPHILS # (AUTO) 0.1 (0.0-0.4); EOSINOPHILS % 1.3 % (0.0-6.0); HEMATOCRIT 38.6 % (38.2-49.6); HEMOGLOBIN 12.1 g/dL (14.0-18.0); LYMPHOCYTES # (AUTO) 0.5 (1.0-3.2); LYMPHOCYTES % 10.8 % (18.0-39.1); MEAN CORPUSCULAR HEMOGLOBIN 29.8 pg (28-32); MEAN CORPUSCULAR HGB CONC 31.3 g/dL (31-35); MEAN CORPUSCULAR VOLUME 95.1 fL (81-99); MONOCYTES # (AUTO) 0.6 (0.2-0.8); MONOCYTES % 12.5 % (4.4-11.3); NEUTROPHILS # (AUTO) 3.5 (2.1-6.9); PLATELET COUNT 195 x10e3/uL (140-360); RED BLOOD COUNT 4.06 x10e6/uL (4.3-5.7); WHITE BLOOD COUNT 4.72 x10e3/uL (4.8-10.8)
[2023-11-29 05:54] LABS: ALBUMIN 3.5 g/dL (3.5-5.0); ALBUMIN/GLOBULIN RATIO 1.1 (0.8-2.0); ANION GAP 13.6 mmol/L (8-16); BILIRUBIN,TOTAL 0.7 mg/dL (0.2-1.2); CALCIUM 8.7 mg/dL (8.4-10.2); CREATININE, SERUM 1.5 mg/dL (0.72-1.25); POTASSIUM 4.6 mmol/L (3.5-5.1); TOTAL PROTEIN 6.6 g/dL (6.5-8.1)
[2023-11-29] MEDS: MAGNESIUM/ALUMINUM/SIMETHICONE 30 ML UDC PO PRN (07:29)
[2023-11-29] MEDS: GABAPENTIN 100 MG CAP PO SCH (08:51)
[2023-11-29] MEDS: LISINOPRIL 10 MG TAB PO SCH (08:52)
[2023-11-29] MEDS ORDERED: METOPROLOL TARTRATE INJ 1 MG/ML VIAL IV PRN (13:30)
[2023-11-29] MEDS ORDERED: ALBUTEROL/IPRATROPIUM 3 ML NEB NEB PRN (13:30)
[2023-11-29] MEDS ORDERED: DOCUSATE SODIUM 100 MG CAP PO PRN (13:30)
[2023-11-29] MEDS ORDERED: SIMETHICONE 80 MG CHEW PO PRN (13:30)
[2023-11-29] MEDS: SODIUM CHLORIDE 0.9% 1000ML 1,000 ML IV SCH (14:18)
[2023-11-29] MEDS: SODIUM BICARBONATE 650 MG TAB PO SCH (14:18)
[2023-11-29] MEDS ORDERED: MELATONIN 3 MG TAB PO PRN (21:00)
[2023-11-30] VITALS (8 sets, daily range): BP systolic 150–168; BP diastolic 56–92; PULSE 60–83; RESP 16–20; TEMP 98.2–98.7; O2SAT 97–100
[2023-11-30] MEDS: ACETAMINOPHEN 325 MG TAB PO PRN (05:16)
[2023-11-30 06:05] LABS: EOSINOPHILS % 0.2 % (0.0-6.0); HEMATOCRIT 35.7 % (38.2-49.6); HEMOGLOBIN 11.4 g/dL (14.0-18.0); LYMPHOCYTES # (AUTO) 0.6 (1.0-3.2); LYMPHOCYTES % 12.8 % (18.0-39.1); MEAN CORPUSCULAR HEMOGLOBIN 29.8 pg (28-32); MEAN CORPUSCULAR HGB CONC 31.9 g/dL (31-35); MEAN CORPUSCULAR VOLUME 93.2 fL (81-99); MONOCYTES # (AUTO) 0.6 (0.2-0.8); MONOCYTES % 14.2 % (4.4-11.3); NEUTROPHILS # (AUTO) 3.1 (2.1-6.9); NEUTROPHILS % 72.6 % (38.7-80.0); PLATELET COUNT 180 x10e3/uL (140-360); RED BLOOD COUNT 3.83 x10e6/uL (4.3-5.7)
[2023-11-30 06:33] LABS: ANION GAP 13.5 mmol/L (8-16); CALCIUM 8.3 mg/dL (8.4-10.2); CREATININE, SERUM 1.51 mg/dL (0.72-1.25); MAGNESIUM 1.5 MG/DL (1.3-2.1); PHOSPHORUS 2.5 MG/DL (2.3-4.7); POTASSIUM 4.5 mmol/L (3.5-5.1)
[2023-11-30] MEDS ORDERED: REMDESIVIR 200MG 200 MG in SODIUM CHLORIDE 0.9% 100 ML IV ONE (17:15)
[2023-11-30] MEDS ORDERED: REMDESIVIR 100MG 100 MG in SODIUM CHLORIDE 0.9% 100 ML IV SCH (17:15)
[2023-11-30] MEDS: ACETAMIN/BUTALBITAL/CAFFEINE TAB PO PRN (20:45)
[2023-11-30] MEDS: SODIUM BICARBONATE 8.4% IV SCH (20:51)
[2023-11-30] MEDS: SODIUM CHLORIDE 0.45% IV SCH (20:51)
[2023-12-01] VITALS: BP 158/89; PULSE 62; RESP 18; TEMP 98.1; O2SAT 96
[2023-12-01 05:32] LABS: BASOPHILS % 0.3 % (0.0-1.0); EOSINOPHILS # (AUTO) 0.1 (0.0-0.4); EOSINOPHILS % 1.9 % (0.0-6.0); HEMATOCRIT 35.6 % (38.2-49.6); HEMOGLOBIN 11.2 g/dL (14.0-18.0); LYMPHOCYTES # (AUTO) 0.7 (1.0-3.2); LYMPHOCYTES % 20.6 % (18.0-39.1); MEAN CORPUSCULAR HEMOGLOBIN 29.5 pg (28-32); MEAN CORPUSCULAR HGB CONC 31.5 g/dL (31-35); MEAN CORPUSCULAR VOLUME 93.7 fL (81-99); MONOCYTES # (AUTO) 0.4 (0.2-0.8); MONOCYTES % 13.8 % (4.4-11.3); NEUTROPHILS % 62.8 % (38.7-80.0); PLATELET COUNT 166 x10e3/uL (140-360)
[2023-12-01 06:03] LABS: ANION GAP 12.1 mmol/L (8-16); CALCIUM 8.4 mg/dL (8.4-10.2); CREATININE, SERUM 1.61 mg/dL (0.72-1.25); MAGNESIUM 1.5 MG/DL (1.3-2.1); PHOSPHORUS 2.9 MG/DL (2.3-4.7); POTASSIUM 4.1 mmol/L (3.5-5.1)
[2023-12-01 06:53] VITALS: PULSE 78; RESP 20; O2SAT 95
[2023-12-01 07:30] VITALS: BP 158/89; PULSE 78; RESP 20; TEMP 98.1; O2SAT 95
[2023-12-01 07:38] VITALS: BP 149/82; PULSE 60; RESP 19; TEMP 98.2; O2SAT 99
[2023-12-01] MEDS: ZINC SULFATE 50 MG CAP PO SCH (09:15)
[2023-12-01] MEDS: ASCORBIC ACID 500 MG TAB PO SCH (09:15)
[2023-12-01] MEDS: CHOLECALCIFEROL 1,000 UNIT TAB PO SCH (09:15)
[2023-12-01] MEDS: MULTIVITAMINS/MINERALS TAB PO SCH (09:15)
[2023-12-01] MEDS: AMLODIPINE BESYLATE 10 MG TAB PO SCH (09:16)
[2023-12-01 12:16] VITALS: BP 155/80; PULSE 63; RESP 18; TEMP 98.2; O2SAT 96
[2023-12-01] MEDS ORDERED: NORVASC10 MG PO (13:16)
[2023-12-01] MEDS ORDERED: SODIUM BICARBO650 MG PO (13:16)
[2023-12-01] MEDS ORDERED: ASCORBIC ACID500 MG PO (13:16)
[2023-12-01] MEDS ORDERED: Multivitamins/Minerals Tab PO (13:16)
[2023-12-01] MEDS ORDERED: ACETAMINOPHEN325 M1 PO (13:16)
[2023-12-01] MEDS ORDERED: Cholecalciferol PO (13:16)
[2023-12-01] MEDS ORDERED: Zinc Sulfate PO (13:16)
[2023-12-01] MEDS ORDERED: ONDANSETRON HCL 4 MG ORAL DISINTEGRATING TAB PO PRN (13:45)
== END 2023-12-01 15:17 | disposition home or self-care (01) | DRG 177 ==
LOC: ER 11:38 → ERHOLD 13:49 → MED/SURG2 15:01 → OBSVTOIN 11-30 12:13
PROVIDERS: ADMIT Internal Medicine; ATTEND Internal Medicine
PROC: XW033E5 Introduction of Remdesivir Anti-infective into Peripheral Vein, Percutaneous Approach, New Technology Group 5 (ICD-10-PCS; principal; 2023-11-30)
DX: U07.1 COVID-19 (principal); G93.41 Metabolic encephalopathy; N17.9 Acute kidney failure, unspecified; E87.20 Acidosis, unspecified; E87.1 Hypo-osmolality and hyponatremia; I12.9 Hypertensive chronic kidney disease with stage 1 through stage 4 chronic kidney disease, or unspecified chronic kidney disease; N18.30 Chronic kidney disease, stage 3 unspecified; K21.9 Gastro-esophageal reflux disease without esophagitis; M54.9 Dorsalgia, unspecified; F41.9 Anxiety disorder, unspecified; Z86.73 Personal history of transient ischemic attack (TIA), and cerebral infarction without residual deficits; Z88.1 Allergy status to other antibiotic agents
CPT/HCPCS: 36415; 71045; 76770; 80048; 80053; 81001; 82140; 83735; 84100; 85025; 94799; 99284; G0378; J7030; U0002